=== PATIENT | male | born 2000 | race Caucasian/White ===

== ENCOUNTER → 2018-10-13 | Day surgery (SDC) | payer OTHER ==
[~2018-10-13] MED LIST: gadopentetate dimeglumine 5 mmol/10ml vial IV ONE; iohexol 300 MG/1 ML 10ml vial ONE
== END | disposition home or self-care (01) ==
LOC: RAD 09:51
PROVIDERS: ATTEND Family Medicine
DX: M23.8X2 Other internal derangements of left knee (principal)
CPT/HCPCS: 27369; 73722; A9579; Q9967

== ENCOUNTER 2023-12-01 10:44 | Outpatient (CLI) | payer MEDICAID | END 2023-12-01 23:59 | disposition home or self-care (01) | LOC: RAD 10:44 | PROVIDERS: ATTEND Nurse Practitioner | DX: R06.02 Shortness of breath (principal); R21 Rash and other nonspecific skin eruption; R50.9 Fever, unspecified | CPT/HCPCS: 71046 ==